=== PATIENT | female | born 1960 | race Caucasian/White ===

== ENCOUNTER → 2017-01-06 | Day surgery (SDC) | payer BC ==
[2017-01-02 13:08] VITALS: Ht 163.8 cm; Wt 73.6 kg
[~2017-01-06] VITALS: Ht 163.8 cm; Wt 73.6 kg
[~2017-01-06] MED LIST: CETI10TA84 PO; CHOL20007 PO; COEN150C PO; FLUT0.15 NAE; IBUP-1050 PO; LIDOCAINE HCL 2% 2 ML VIAL (20MG/ML) ONE; LUTE20TA PO; MAGNESIUM MALATE PO; MENA40TA PO; MIDAZOLAM HCL 1 MG/ML 2ML VIAL ONE; MIRA100T PO; MULT-513 PO; OMEG10002 PO; ONDANSETRON INJ 2 MG/ML 2 ML VIAL ONE; POLY335019 PO; PROB1TAB16 PO; PROPOFOL IV EMULSION 10 MG/ML 20 ML VIAL IV ONE; RIZA10TA19 PO; SODIUM CHLORIDE 0.9% 500ML 500 ML IV ONE
--- NOTE | 2017-01-06 08:36 | Endo History and Physical ---
History & Physical Date of Service: Jan 06, 2017. Chief Complaint: Screening Referring Physician: Dr. Urrutia History of Present Illness 56 yo CF who presents for screening colonoscopy. Past Surgical History Hx Cardiac Surgery: No Hx Internal Defibrillator: No Hx Pacemaker: No Hx Abdominal Surgery: Yes (UTERINE FIBROID EMBOLIZATION, D&C) Hx of Implantable Prosthesis: No Hx Post-Op Nausea and Vomiting: Yes Hx Cancer Surgery: No Hx Thoracic Surgery: No Hx Orthopedic: No Hx Urinary Tract Surgery: Yes (BLADDER SLING) Family History None Social History Smoking Status: Never Smoker Hx Substance Use: No Hx Alcohol Use: Yes (RARE) Allergies Coded Allergies: Topiramate (Verified Adverse Reaction, Unknown, IRRITABLITY AND SI, 01/02/17 ) Uncoded Allergies: BIRCH BARK EXTRACT (Allergy, Unknown, HIVES, 01/02/17) SUN (Allergy, Unknown, HIVES, 01/02/17) DUST MITES (Adverse Reaction, Unknown, SINUS CONGESTION, 01/02/17) HORMONE (Adverse Reaction, Unknown, MOOD SWINGS (SI AND HI), 01/02/17) OPIATES (Adverse Reaction, Unknown, N/V, 01/02/17) Current Medications Reported Home Medications Medications Dose Route/Sig Max Daily Dose Days Date Category Miralax (Polyethylene Glycol 3350) 1 Pow Pow 0.25 Dose PO QAM 01/02/17 Reported Probiotic (Probiotic Product) 1 Tab Tab 1 Tab PO QAM 01/02/17 Reported Fish Oil ([place]-3 Fatty Acids) 1,000 Mg Cap 1 Tab PO QAM 01/02/17 Reported Mvi With Minerals (Multivitamins/Minerals) Tab 1 Tab PO QAM 01/02/17 Reported Co Q-10 (Coenzyme Q10 (Ubidecarenone)) 150 Mg Cap 200 Mg PO QAM 01/02/17 Reported Vitamin K2 (Menaquinone-7) 40 Mcg Tab 45 Mcg PO QAM 01/02/17 Reported Lutein 20 Mg Tab 1 Tab PO QAM 01/02/17 Reported Vitamin D3 (Cholecalciferol) 2,000 Unit Tab 4,000 Inter.unit PO QAM 01/02/17 Reported [Magnesium Malate] 400 Mg PO BID 01/02/17 Reported Zyrtec (Cetirizine HCl) 10 Mg Tab 10 Mg PO QAM 01/02/17 Reported Flonase Allergy Relief (Fluticasone Propionate (Nasal)) 50 Mcg/Act Spr 2 [place] PRISCILA BID PRN 01/02/17 Reported Advil (Ibuprofen) 200 Mg Tab 200-600 Mg PO Q4H PRN 01/02/17 Reported Maxalt-Injection Molding Engineer (Rizatriptan Benzoate) 10 Mg Tab 10 Mg PO UD PRN 01/02/17 Reported Myrbetriq Er (Mirabegron) 25 Mg Tab 25 Mg PO QAM 01/02/17 Reported Vital Signs Weight (Kilograms): 73.64 Height (Feet): 5 Height (Inches): 4.5 Physical Exam General Appearance: WD/WN, no apparent distress Respiratory/Chest: Auscultation: breath sounds normal Cardiovascular: Heart Auscultation: RRR Abdomen: Bowel Sounds: normal Inspection & Palpation: soft, non-distended, no tenderness, guarding & rebound Assessment and Plan Assessment: 56 yo CF who presents for screening colonoscopy. Plan: Proceed with colonoscopy.
--- NOTE | 2017-01-06 09:53 | GI REPORT ---
Procedure Date: 01/06/2017 9:23 AM Procedure: Colonoscopy Indications: Screening for colorectal malignant neoplasm Medicines: Monitored Anesthesia Care Complications: No immediate complications. Estimated Blood Loss: Estimated blood loss: none. Procedure: Pre-Anesthesia Assessment: - Prior to the procedure, a History and Physical was performed, and patient medications and allergies were reviewed. The patient's tolerance of previous anesthesia was also reviewed. The risks and benefits of the procedure and the sedation options and risks were discussed with the patient. All questions were answered, and informed consent was obtained. Prior Anticoagulants: The patient has taken no previous anticoagulant or antiplatelet agents. ASA Grade Assessment: II - A patient with mild systemic disease. After reviewing the risks and benefits, the patient was deemed in satisfactory condition to undergo the procedure. After I obtained informed consent, the scope was passed under direct vision. Throughout the procedure, the patient's blood pressure, pulse, and oxygen saturations were monitored continuously. The scope was introduced through the anus and advanced to the terminal ileum. The colonoscopy was performed without difficulty. The patient tolerated the procedure well. The quality of the bowel preparation was good. The terminal ileum, ileocecal valve, appendiceal orifice, and rectum were photographed. Findings: Internal hemorrhoids were found during retroflexion. The hemorrhoids were small. The exam was otherwise without abnormality. Impression: - Internal hemorrhoids. - The examination was otherwise normal. - No specimens collected. Recommendation: - Resume previous diet. - Continue present medications. - Repeat colonoscopy in 10 years for surveillance. - Return to primary care physician as previously scheduled. Andrew Juarez DO 01/06/2017 9:53:02 AM This report has been signed electronically. Note Initiated On: 01/06/2017 9:23 AM I attest to the content of the Intraoperative Record and orders documented therein, exceptions below
--- NOTE | 2017-01-06 09:54 | Discharge Instructions ---
Endoscopy Patient Instructions Date / Procedure(s) Performed Jan 06, 2017. Colonoscopy Allergy Information Coded Allergies: Topiramate (Verified Adverse Reaction, Unknown, IRRITABLITY AND SI, 01/02/17 ) Uncoded Allergies: BIRCH BARK EXTRACT (Allergy, Unknown, HIVES, 01/02/17) SUN (Allergy, Unknown, HIVES, 01/02/17) DUST MITES (Adverse Reaction, Unknown, SINUS CONGESTION, 01/02/17) HORMONE (Adverse Reaction, Unknown, MOOD SWINGS (SI AND HI), 01/02/17) OPIATES (Adverse Reaction, Unknown, N/V, 01/02/17) Discharge Date / Findings Jan 06, 2017. Internal hemorrhoids Medication Instructions OK to resume all medications today as prescribed Reported Home Medications Medications Dose Route/Sig Max Daily Dose Days Date Category Miralax (Polyethylene Glycol 3350) 1 Pow Pow 0.25 Dose PO QAM 01/02/17 Reported Probiotic (Probiotic Product) 1 Tab Tab 1 Tab PO QAM 01/02/17 Reported Fish Oil ([place]-3 Fatty Acids) 1,000 Mg Cap 1 Tab PO QAM 01/02/17 Reported Mvi With Minerals (Multivitamins/Minerals) Tab 1 Tab PO QAM 01/02/17 Reported Co Q-10 (Coenzyme Q10 (Ubidecarenone)) 150 Mg Cap 200 Mg PO QAM 01/02/17 Reported Vitamin K2 (Menaquinone-7) 40 Mcg Tab 45 Mcg PO QAM 01/02/17 Reported Lutein 20 Mg Tab 1 Tab PO QAM 01/02/17 Reported Vitamin D3 (Cholecalciferol) 2,000 Unit Tab 4,000 Inter.unit PO QAM 01/02/17 Reported [Magnesium Malate] 400 Mg PO BID 01/02/17 Reported Zyrtec (Cetirizine HCl) 10 Mg Tab 10 Mg PO QAM 01/02/17 Reported Flonase Allergy Relief (Fluticasone Propionate (Nasal)) 50 Mcg/Act Spr 2 [place] PRISCILA BID PRN 01/02/17 Reported Advil (Ibuprofen) 200 Mg Tab 200-600 Mg PO Q4H PRN 01/02/17 Reported Maxalt-Straightedge Man (Rizatriptan Benzoate) 10 Mg Tab 10 Mg PO UD PRN 01/02/17 Reported Myrbetriq Er (Mirabegron) 25 Mg Tab 25 Mg PO QAM 01/02/17 Reported Provider Instructions Activity Restrictions - No exercising or heavy lifting for 24 hours. - Do not drink alcohol the day of the procedure. - Do not drive a car or operate machinery until the day after the procedure. - Do not make any important decisions or sign important papers in 24 hours after the procedure. Following Day: - Return to full activity which may include returning to work/school. Diet Start your diet with liquids and light foods (jello, soup, juice, toast). Then eat your usual diet if not nauseated. Treatment For Common After Affects For mild abdominal pain, bloating, or excessive gas: - Rest - Eat lightly - Lie on right side Follow-Up Information Follow-up with as scheduled Anesthesia Information What You Should Know You have had a procedure that required some medicine to reduce anxiety and discomfort. This treatment is called moderate sedation. After receiving the treatment, you may be sleepy, but you will be able to breathe on your own. The effects of the treatment may last for several hours. Follow these instructions along with Activity/Diet recommendations noted above: * Do NOT do anything where dizziness or clumsiness would be dangerous. * Rest quietly at home today, then you can be up and about tomorrow. * Have a responsible person stay with you the rest of today. * You may have had an I.V. today. If so, you may take the dressing off later today. Recommendations Call your doctor if: * Trouble breathing * Continuous vomiting for more than 24 hours * Temperature above 101 degrees * Severe abdominal pain or bloating * Pain not relieved by pain medicine ordered * There is increased drainage or redness from any incision * A large amount of rectal bleeding greater than 2-3 tablespoons. (If you had a polyp/s removed or have hemorrhoids, a small amount of blood - from the rectum is to be expected.) * You have any unanswered questions or concerns. IN THE EVENT OF A SERIOUS EMERGENCY, GO TO THE NEAREST EMERGENCY ROOM Your discharge instructions were prepared by provider Andrew Juarez. Patient Instructions Signature Page Kenna Barr Patient (or Guardian) Signature/Date: I have read and understand the instructions given to me by my caregivers. Caregiver/RN/Doctor Signature/Date: The above-named patient and/or guardian has received patient instructions on this date. + Original Patient Signature Page (only) stays with chart. Please make copy for patient.
--- NOTE | 2017-01-06 10:13 | Anesthesiology Progress Note ---
Anesthesia Post Op Note Date & Time Jan 06, 2017 at 10:13 Vital Signs Pain Intensity: 0 Vital Signs Past 12 Hours Date Time Temp Pulse Resp B/P Pulse Ox O2 Delivery O2 Flow Rate FiO2 01/06/17 09:52 69 20 117/64 98 Room Air 01/06/17 08:40 36.5 65 18 149/77 97 Room Air Notes Mental Status: alert / awake / arousable, participated in evaluation Pt Amnestic to Procedure: Yes Nausea / Vomiting: adequately controlled Pain: adequately controlled Airway Patency, RR, SpO2: stable & adequate BP & HR: stable & adequate Hydration State: stable & adequate Anesthetic Complications: no major complications apparent
[2017-01-06 10:37] VITALS: BP 141/70; PULSE 56; O2SAT 100
== END | disposition home or self-care (01) ==
LOC: C.GI 08:12
PROVIDERS: ATTEND Internal Medicine
DX: Z12.11 Encounter for screening for malignant neoplasm of colon (principal); K64.8 Other hemorrhoids

== ENCOUNTER → 2017-09-01 | Outpatient (CLI) | payer BC ==
[~2017-09-01] MED LIST changes: -LIDOCAINE HCL 2% 2 ML VIAL (20MG/ML) ONE; -MIDAZOLAM HCL 1 MG/ML 2ML VIAL ONE; -ONDANSETRON INJ 2 MG/ML 2 ML VIAL ONE; -PROPOFOL IV EMULSION 10 MG/ML 20 ML VIAL IV ONE; -SODIUM CHLORIDE 0.9% 500ML 500 ML IV ONE
--- NOTE | 2017-09-02 07:40 | MAMMOGRAPHY REPORT ---
BILATERAL DIGITAL SCREENING MAMMOGRAM TOMOSYNTHESIS WITH CAD: 09/01/2017 CLINICAL HISTORY: Routine screening. Patient has no complaints. TECHNIQUE: Breast tomosynthesis in addition to standard 2D mammography was performed. Current study was also evaluated with a Computer Aided Detection (CAD) system. COMPARISON: Comparison is made to exams dated: 08/09/2016 mammogram, 07/04/2015 mammogram, 04/04/2014 m ammogram, 04/02/2013 mammogram, 03/25/2012 mammogram, and 02/21/2011 mammogram - [facility] nter. BREAST COMPOSITION: The tissue of both breasts is heterogeneously dense, which may obscure small mas ses. FINDINGS: There is an 8 mm asymmetry in the middle one third of the right breast, along the posterio r nipple line on the MLO view (4.7 cm distal to the nipple). Although this could represent normal ov erlapping tissue, additional spot compression tomosynthesis, exaggerated lateral CC views and possibl e ultrasound are recommended. No other suspicious mass, architectural distortion or cluster of microcalcifications is seen. IMPRESSION: ACR BI-RADS CATEGORY 0: INCOMPLETE EVALUATION: NEED ADDITIONAL IMAGING EVALUATION The 8 mm asymmetry in the middle one third of the right breast needs additional evaluation. The patient will be called to schedule an appointment. Approximately 10% of breast cancers are not detected with mammography. A negative mammographic report should not delay biopsy if a clinically suggestive mass is present. Amrita Klein M.D. ay/:09/01/2017 15:30:51 Area Operations Manager: Azucena JEFF(R)(M), [facility] letter sent: Addl Imaging 0 BI-RADS Code: ACR BI-RADS Category 0: Incomplete Evaluation: Need Additional Imaging Evaluation
== END | disposition home or self-care (01) ==
LOC: C.MAMM 14:44
PROVIDERS: ATTEND Obstetrics & Gynecology
DX: Z12.31 Encounter for screening mammogram for malignant neoplasm of breast (principal); R92.8 Other abnormal and inconclusive findings on diagnostic imaging of breast

== ENCOUNTER → 2017-09-08 | Outpatient (CLI) | payer BC ==
--- NOTE | 2017-09-08 13:34 | MAMMOGRAPHY REPORT ---
UNILATERAL RIGHT DIGITAL DIAGNOSTIC MAMMOGRAM TOMOSYNTHESIS AND TARGETED RIGHT ULTRASOUND: 09/08/2017 CLINICAL HISTORY: 57-year-old woman called back from screening mammography for an 8 mm asymmetry in t he middle one third of the right breast on the MLO view. Family history of breast cancer = mother. TECHNIQUE: Spot compression right CC and MLO 2-D and tomosynthesis images were obtained. COMPARISON: Comparison is made to exams dated: 09/01/2017 mammogram, 08/09/2016 mammogram, 07/04/2015 m ammogram, 04/04/2014 mammogram, 04/02/2013 mammogram, and 03/25/2012 mammogram - [facility] nter. BREAST COMPOSITION: The tissue of the right breast is extremely dense, which lowers the sensitivity of mammography. FINDINGS: There is partial effacement of the 8 mm asymmetry in the middle one third of the right lc ast, just superior to the posterior nipple line on the MLO view. There is no evidence of associated architectural distortion or other area of distortion seen in the right breast on the tomosynthesis im ages. No suspicious microcalcifications. No corresponding abnormality is identified on the spot com pression right CC view and associated tomosynthesis images. Given the patchy dense parenchyma and on ly partial effacement of the asymmetry, additional evaluation with ultrasound was performed. Targeted ultrasound was performed throughout the superior right breast. Dense glandular tissue is se en with areas of shadowing. One focal hypoechoic irregular lesion is identified in the 1:00 right br east, 1 cm from the nipple, measuring 4.2 x 4.5 x 3.1 mm. This could simply represent normal tissue or stromal fibrosis, but a mass cannot be completely excluded. Given the vague nature, definitive ch aracterization with a breast MRI is recommended to assess the possibility of a small enhancing mass i n this area, as this lesion is smaller than the 8 mm mammographic asymmetry and it is unclear if they could correlate. IMPRESSION: ACR BI-RADS CATEGORY 0: INCOMPLETE EVALUATION: NEED ADDITIONAL IMAGING EVALUATION, TARG ETED ULTRASOUND ACR BI-RADS CATEGORY 0: INCOMPLETE EVALUATION: NEED ADDITIONAL IMAGING EVALUATION There is partial effacement of the 8 mm asymmetry with additional supplemental spot compression tomos ynthesis images, without definite sonographic correlate identified. A 4 mm lesion is seen in the rig ht breast on ultrasound and it is unclear if this could correlate with the asymmetry or may simply re present normal tissue. Therefore, definitive characterization with a contrast-enhanced breast MRI is recommended, to exclude the possibility of a suspicious enhancing mass, particularly given the extre ahsan dense breast parenchyma and family history of breast cancer. These results and recommendations were discussed with the patient at the time of the exam. Approximately 10% of breast cancers are not detected with mammography. A negative mammographic report should not delay biopsy if a clinically suggestive mass is present. Amrita Klein M.D. ay/:09/08/2017 11:29:26 Hide Grader: Irasema JEFF(Loyd)(M), [facility] letter sent: Addl Imaging 0 BI-RADS Code: ACR BI-RADS Category 0: Incomplete Evaluation: Need Additional Imaging Evaluation Ult rasound BI-RADS: ACR BI-RADS Category 0: Incomplete Evaluation: Need Additional Imaging Evaluation
== END | disposition home or self-care (01) ==
LOC: C.MAMM 08:31
PROVIDERS: ATTEND Obstetrics & Gynecology
DX: N64.89 Other specified disorders of breast (principal)

== ENCOUNTER → 2017-11-19 | Outpatient (CLI) | payer BC ==
--- NOTE | 2017-11-19 08:21 | DIAGNOSTIC IMAGING REPORT ---
ABDOMEN LIMITED (US) CLINICAL HISTORY: 57 years-old Female presenting with MASS IN LIVER, PER MRI. TECHNIQUE: Real-time grayscale and limited color Doppler ultrasound imaging of the abdomen limited to the right upper quadrant was performed. COMPARISON: Abdominal MR from 2007. FINDINGS: Pancreas: Visualized portions of the pancreatic head and body normal. Liver: Normal echogenicity and echotexture. Multiple anechoic well-defined lobular lesions in the liver consistent with hepatic cysts. The largest measures 5.5 x 7.0 x 4.6 cm. Main portal vein patent with normal directional flow. Biliary: No intrahepatic biliary ductal dilatation. Common bile duct measures up to 8 mm in diameter. Gallbladder: No evidence of gallstones, gallbladder wall thickening, gallbladder distention, or pericholecystic fluid or inflammatory change. Right kidney: Small upper pole simple cyst noted. No hydronephrosis. Ascites: None. IMPRESSION: 1. Findings most consistent with hepatic cysts, which have increased in size since 2006. Less likely differential considerations include biliary cystadenomas. Electronically signed by: Sanjeev Smart M.D. 11/19/2017 8:19 AM Dictated Date/Time: 11/19/2017 8:16 AM
== END | disposition home or self-care (01) ==
LOC: C.ULTR 07:51
PROVIDERS: ATTEND Family Medicine
DX: R16.0 Hepatomegaly, not elsewhere classified (principal)